=== PATIENT | male | born 1960 | race Two or more races ===

== ENCOUNTER 2017-10-16 22:33 | Emergency (ER) | payer BC ==
[~2017-10-16] VITALS: Ht 167.6 cm; Wt 66.2 kg
[2017-10-16 22:43] VITALS: Ht 167.6 cm; Wt 66.2 kg
[2017-10-17 00:31] VITALS: BP 126/79
== END 2017-10-17 00:31 | disposition home or self-care (01) ==
LOC: ED 22:33
DX: H11.31 Conjunctival hemorrhage, right eye (principal)